=== PATIENT | male | born 1955 | race Caucasian/White ===

== ENCOUNTER 2018-10-22 12:16 | Inpatient (IN) | payer OTHER ==
[~2018-10-22] VITALS: Ht 180.3 cm; Wt 97.7 kg
[2018-10-22] VITALS (11 sets, daily range): BP systolic 74–115; BP diastolic 40–77
--- NOTE | ~2018-10-22 | OP ---
[address] [address] OPERATIVE REPORT Name: SHANA THOMAS Room: [address] IN M.R.#: [id number] Admission: 10/22/18 Attend Phys: Basilio Vasquez DO Discharge: Date of : 59 Report #: [id number] THIS REPORT FOR: //name// CC: Basilio Vasquez [facility] physician/PCP Tina Avila MD DATE OF SERVICE: 10/22/2018 PREOPERATIVE DIAGNOSIS: Perforated viscus with large fluid collection in the left upper quadrant. POSTOPERATIVE DIAGNOSIS: Mass of the left upper quadrant involving the transverse colon, splenic flexure, descending colon, third and fourth portion of the duodenum associated with large hematoma and abscess. PROCEDURE: Emergency exploratory laparotomy with en bloc resection of the transverse colon, splenic flexure, descending colon, duodenum and left upper quadrant mass, small bowel resection with anastomosis and omental patch and transverse colostomy. SURGEON: Basilio Vasquez DO CLOTH PAINTER: Dr. Lyn Shaw. SECOND FIELD CROP FARMER: Student Dr. Wilfredo Wong. ANESTHESIA: General endotracheal. ESTIMATED BLOOD LOSS: 1500 mL COMPLICATIONS: None. REFERRING PHYSICIAN: Dr. Tina Avila. INDICATIONS FOR PROCEDURE: The patient is a 63-year-old gentleman who presented to the Emergency Room with acute onset of left upper quadrant abdominal pain. This pain started at 10:00 a.m. today. He had stated that he was feeling full for the last few weeks and had some episodes of emesis and feeling that food was not going through his stomach. He had previously had a colonoscopy approximately 2 years ago in which he stated there was a polyp that was removed and he was instructed to follow up in 6 months to a year for repeat; however, he had family issues including the passing of his father and he neglected to have that repeat colonoscopy. He was scheduled next Wednesday for that procedure. In the Emergency Room, he underwent a CT scan of his abdomen, which showed a 15 cm mass associated with free intra-abdominal air. [place] [address] OPERATIVE REPORT Name: MARTHASHANA Room: [address] IN ..#: [id number] Admission: 10/22/18 Attend Phys: Basilio Vasquez DO Discharge: Date of : 59 Report #: [id number] quadrant and appeared to have different densities of fluids and solids within it. We discussed emergency laparotomy and he agreed to proceed with that. I did discuss the risks and complications with the patient and his son and son's significant other at the bedside. Risks of the procedure included bleeding, infection, injury to other intra-abdominal organs, possible colostomy, possible ileostomy, possible mucous fistula as well as other associated risks including the possible need for reoperation. I did discuss with the patient that this was a suspicious appearing area and may be cancerous in nature. He agreed to proceed with the procedure. DESCRIPTION OF PROCEDURE: After obtaining proper consents and again discussing the risks and complications with the patient, he was taken to the operating room, laid on the supine position and administered general endotracheal anesthetic. He was then prepped and draped in the usual fashion. We also placed a Chatman catheter. There was very little urine in the patient's bladder when the Chatman was placed and the urine that did come out of the Chatman appeared quite cloudy and quite dark. After the patient was prepped and draped in the usual fashion, a timeout was performed. We confirmed the appropriate patient and procedure. Preoperative antibiotics were given. SCDs were in place. We then made a small supraumbilical skin incision with a #10 scalpel blade. This was carried down through the skin and the subcutaneous tissue using electrocautery for hemostasis. Once the fascia was encountered, it was incised along the midline, grasped and elevated with Gerda clamps and divided further. The peritoneum was then bluntly opened using a hemostat. Immediately upon entering the abdominal cavity, there was a large amount of cloudy fluid noted. We extended the peritoneal and fascial openings for the entire length of the incision. I enlarged the incision enough for me to get my hand inside the abdominal cavity. Once this was done, we immediately identified what appeared to be a large mass in the left upper quadrant. There was also a feculent odor and evidence of food particles. Cultures were obtained from the peritoneal fluid. I then extended the incision all the way up to the xiphoid process. I was then able to place my hand within the abdominal cavity and attempted to identify the structures associated with this. I also ran the small bowel starting from the cecum going backwards until we reached an area of dilated bowel that went directly into this firm mass. There was noted to be a very large hematoma and abscess cavity, which appeared to be inclusive of the jejunum just distal to the ligament of Treitz. This also appeared to include the transverse colon, splenic flexure and descending colon within this firm mass. I then took down the white line of Toldt along the left pericolic gutter. I identified the spleen and cautiously took down the splenic flexure as well. The mesentery of this area was quite firm all the way down to the root of the mesentery. We used a LigaSure impact device and stayed well away from the colon in this area; however, there was a large hole, which appeared to be in both the colon and small bowel in this area and was continuously leaking stool. I then identified the transverse colon in an area that was not involved in this and I opened up the gastrocolic omentum and entered the lesser [place] [address] OPERATIVE REPORT Name: MARTHASHANA Room: [address] IN M.R.#: [id number] Admission: 10/22/18 Attend Phys: Basilio Vasquez DO Discharge: Date of : 59 Report #: [id number] dissect this free blunt dissection as well as dissection with the LigaSure impact device was performed until we were able to roll the entire mass medially and bring it up to the incision. At this point, I felt that we had to perform an en bloc resection of this area, identified the jejunum going into this area and opened an avascular window in the mesentery and then divided the jejunum using a MIRA 80 stapling device. I then also identified a proximal transverse colon area, which appeared to be uninvolved in this mass and opened an avascular window in the mesentery and then used a MIRA 80 to divide this area as well. Then, as I continued to dissect the mesentery of the descending colon all the way up and around the splenic flexure and into the transverse colon, we identified what appeared to be the third portion of the duodenum, which was going into this mass as well. I then divided this proximally assuring that we were well away from the second portion of the duodenum. The mass was removed along with the transverse colon, splenic flexure, descending colon, duodenum and proximal jejunum in multiple pieces. Once this was done, we were able to copiously irrigate and we identified all of the anatomy. We were able to have a portion of the third portion of the duodenum, which was approximately 4 cm long, which I performed an anastomosis to the jejunum using an Endo-MIRA stapler 45 mm purple load. I then closed the enterotomies, which were made in order to perform this anastomosis using interrupted 2-0 Vicryl sutures and then Lembert stitches were placed using 2-0 silk suture over top of this. I also then used an omental patch over top as well, which was sutured in place using 2-0 Vicryl suture. The transverse colon, which had been divided was then brought out through a right upper quadrant colostomy, which was performed by making a circular incision in the skin in the right upper quadrant dissecting down to the fascia. A cruciate incision was made in the fascia and the peritoneum was then opened. The colon was brought up through the abdominal wound. We then copiously irrigated the abdomen again with approximately 3-4 liters of saline solution. I then ran the small bowel again to assure there were no other problems. The sigmoid colon was partially removed along with the mass. We left a very long rectal stump. There was considerable tumor burden, which appeared to be left in place. This was made right on top of the pancreas and the aorta and I was cautious to stay away from these structures. We then placed two 19-Wolof Esvin-Alvarenga drains. One was placed next to the anastomosis of the duodenum to jejunum. The other was placed down into the pelvis and then along the left pericolic gutter all the way up to the spleen. These were sutured in place using 2-0 nylon suture. I then closed the abdomen using #1 looped PDS suture to close the peritoneum and fascia together. The subcutaneous tissues were then closed using 3-0 Vicryl suture. The skin was closed using kimberly. We then matured the colostomy by first attaching it to the fascia using 2-0 Prolene suture. The colostomy was then matured in the standard fashion by removing the staple line and then everting the mucosa and serosa and attaching it to the subcutaneous tissue. A sterile stoma appliance was placed. Sterile dressings were placed. The patient was then awakened in the operating room and transported to the recovery room in stable, but guarded condition with plans for the patient to go to the Intensive Care Unit because of the large amount of [facility] [address] [facility] [place] [address] OPERATIVE REPORT Name: SHANA THOMAS Room: [address] IN M.R.#: [id number] Admission: 10/22/18 Attend Phys: Basilio Vasquez DO Discharge: Date of : 59 Report #: [id number] blood loss and the poor urine output during the operation, although his vital signs did stay stable throughout the operation. Sponge, needle and instrument counts were correct x 3 at the end of the procedure. 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 By: [id number] Vasquez DO /nt
[2018-10-22 13:06] LABS: HEMOGLOBIN 13.1 gm/dL (14.0-18.0); MCH 26.4 pg (26.0-34.0); MCHC 32.8 g/dL (28.0-37.0); MCV 80.6 fL (80.0-100.0); MPV 8.1 fl. (7.2-11.1); NUCLEATED RBCS 0 /100WBC; PLATELET COUNT* 569 thou/uL (150-400); RBC 4.97 mil/uL (4.50-6.00); RDW-CV 13.9 % (10.5-14.5); WBC 18.8 thou/uL (4.0-11.0)
[2018-10-22 13:18] LABS: CALCIUM 8.7 mg/dL (8.5-10.1); CREATININE 1.1 mg/dL (0.6-1.3); POTASSIUM 3.6 mmol/L (3.5-5.1)
[2018-10-22 13:22] LABS: ALBUMIN 2.8 g/dL (3.4-5.0); TOTAL BILIRUBIN 0.6 mg/dL (<0.1-1.0); TOTAL PROTEIN 6.8 g/dL (6.4-8.2)
[2018-10-22 13:32] LABS: ABSOLUTE EOSINOPHILS 0.2 thou/uL (0.0-0.7); ABSOLUTE LYMPHOCYTES 1.5 thou/uL (0.8-5.3); ABSOLUTE MONOCYTES 1.1 thou/uL (0.0-1.2); ATYPICAL LYMPHS 7 %; PLATELET ESTIMATE ADEQUATE
[2018-10-22 14:40] LABS: URINE BLOOD NEGATIVE (Negative); URINE CLARITY CLEAR; URINE COLOR YELLOW; URINE GLUCOSE-RANDOM NEGATIVE (Negative); URINE KETONES 1+ (Negative); URINE LEUKOCYTES-REFLEX NEGATIVE (Negative); URINE NITRITE-REFLEX NEGATIVE (Negative); URINE PROTEIN 1+ (Negative); URINE SPECIFIC GRAVITY >= 1.030 (1.005-1.030); URINE UROBILINOGEN 0.2 E.U./dl (0.2-1.0)
[2018-10-22 14:42] LABS: ICTOTEST (BILI CONFIRMATORY) Negative (Negative); URINE BILIRUBIN 2+ (Negative)
[2018-10-22 20:30] LABS: HEMATOCRIT 33.1 % (42.0-52.0)
[2018-10-22 20:32] LABS: HEMOGLOBIN 10.6 gm/dL (14.0-18.0)
[2018-10-22 20:38] LABS: CALCIUM 7.5 mg/dL (8.5-10.1); CREATININE 1.1 mg/dL (0.6-1.3); POTASSIUM 5.4 mmol/L (3.5-5.1)
[2018-10-22 20:42] LABS: ALBUMIN 1.6 g/dL (3.4-5.0); TOTAL BILIRUBIN 1.5 mg/dL (<0.1-1.0); TOTAL PROTEIN 4.2 g/dL (6.4-8.2)
[2018-10-23] VITALS (60 sets, daily range): BP systolic 80–116; BP diastolic 36–58
[2018-10-23 01:02] LABS: MCH 26.4 pg (26.0-34.0); MCHC 32.4 g/dL (28.0-37.0); MCV 81.5 fL (80.0-100.0); MPV 7.3 fl. (7.2-11.1); RBC 3.19 mil/uL (4.50-6.00); RDW-CV 13.7 % (10.5-14.5); WBC 7.1 thou/uL (4.0-11.0)
[2018-10-23 01:04] LABS: HEMOGLOBIN 8.4 gm/dL (14.0-18.0)
[2018-10-23 02:07] LABS: ALBUMIN 1.3 g/dL (3.4-5.0); CALCIUM 7.1 mg/dL (8.5-10.1); CREATININE 1.3 mg/dL (0.6-1.3); TOTAL BILIRUBIN 1.5 mg/dL (<0.1-1.0); TOTAL PROTEIN 3.2 g/dL (6.4-8.2)
[2018-10-23 04:25] LABS: ABSOLUTE LYMPHOCYTES 0.6 thou/uL (0.8-5.3); ABSOLUTE MONOCYTES 0.5 thou/uL (0.0-1.2); ABSOLUTE NEUTROPHILS 8.5 thou/uL (1.6-8.1); BASOPHILS 0.1 %; HEMATOCRIT 25.9 % (42.0-52.0); HEMOGLOBIN 8.7 gm/dL (14.0-18.0); LYMPHOCYTES 6.1 %; MCH 27.3 pg (26.0-34.0); MCHC 33.8 g/dL (28.0-37.0); MCV 80.9 fL (80.0-100.0); MONOCYTES 5.6 %; MPV 8.2 fl. (7.2-11.1); NUCLEATED RBCS 0 /100WBC; PLATELET COUNT* 255 thou/uL (150-400); POLYS 88.2 %; RDW-CV 13.7 % (10.5-14.5); WBC 9.6 thou/uL (4.0-11.0)
[2018-10-23 04:59] LABS: ALBUMIN 1.3 g/dL (3.4-5.0); CALCIUM 7.4 mg/dL (8.5-10.1); CREATININE 1.4 mg/dL (0.6-1.3); POTASSIUM 5.3 mmol/L (3.5-5.1); TOTAL BILIRUBIN 1.5 mg/dL (<0.1-1.0); TOTAL PROTEIN 3.9 g/dL (6.4-8.2)
--- NOTE | 2018-10-23 05:27 | NUR ---
Pt arrived at 2200 from PACU. ML abdominal drsg C/D/I. LETY drains X2 with SS drng. BP 80s/40s-50s early after arrival, then down to SBP 70s. Paged Dr. Shaw, orders received for 1L bolus LR. SBP to 80s, then 90s. Urinary output at least 30 mls/hr. Pt A&O X4. Reports pain of 3-4/10 when at rest. Turned q2h. NG to LIS with small amount lt green drainage. Denies nausea. Reports sore/dry throat, especially due to NGT. Otherwise no complaints. Will continue to monitor.
--- NOTE | 2018-10-23 12:14 | EKG ---
[place] [address] ELECTROCARDIOGRAM REPORT Name: SHANA THOMAS Room: [address] ADM IN M.R.#: [id number] Admission: 10/22/18 Attend Phys: Basilio Vasquez DO Discharge: Date of : 59 Report #: [id number] THIS REPORT FOR: //name// [facility] ED Test Date: 2018-10-22 Test Time: 21:11:58 Pat Name: SHANA THOMAS Department: Room: [address] Gender: M Cycle Liaison: RADHA : 1955 Requested By: Jac Mann Order Number: [id number] Maricruz MD: Jan Carrera Measurements Intervals [place] Rate: 66 P: 56 WA: 132 QRS: 44 QRSD: 99 T: 18 QT: 408 QTc: 428 Interpretive Statements Sinus rhythm Low voltage, precordial leads Borderline T wave abnormalities No previous ECG available for comparison Electronically Signed On 10-23-2018 12:14:09 [employer] OPERATIONS VICE PRESIDENT by Jan Carrera [email or web address] <ELECTRONICALLY SIGNED> By: Jan Carrera MD, [facility] 10/23/18 1214 10 10 Jan Carrera MD, FACC /EPI
--- NOTE | 2018-10-23 12:19 | EKG ---
[place] [phone] ELECTROCARDIOGRAM REPORT Name: SHANA THOMAS Room: [address] ADM IN M.R.#: [id number] Admission: 10/22/18 Attend Phys: Basilio Vasquez DO Discharge: Date of : 59 Report #: [id number] THIS REPORT FOR: //name// [facility] Test Date: 2018-10-23 Test Time: 07:39:12 Pat Name: SHANA THOMAS Department: Room: [address] Gender: M Ground Defence Officer: JOSE DANIEL : 1955 Requested By: Basilio Vasquez Order Number: [id number] Maricruz MD: Jan Carrera Measurements Intervals [place] Rate: 74 P: 49 RI: 131 QRS: 29 QRSD: 103 T: 5 QT: 386 QTc: 429 Interpretive Statements Sinus rhythm Low voltage, precordial leads Electronically Signed On 10-23-2018 12:19:31 [employer]YWALL STRIPPER HELPER by Jan Carrera [email or web address] <ELECTRONICALLY SIGNED> By: Jan Carrera MD, [facility] 10/23/18 1219 0739 0739 Jan Carrera MD, FACC /EPI
[2018-10-23 13:57] LABS: CALCIUM 7.7 mg/dL (8.5-10.1); CREATININE 1.4 mg/dL (0.6-1.3); POTASSIUM 4.4 mmol/L (3.5-5.1)
--- NOTE | 2018-10-23 18:31 | NUR ---
PATIENT SOMEWHAT PROGRESSING WELL TOWARDS GOALS. PRESSURES REMAIN SOFT THIS SHIFT, ANOTHER 1000ML BOLUS ORDERED. PAIN UNDER CONTROL AT THIS TIME, PRN MORIPHINE. NG TO LIS, NO NAUSEA. SPRAY HELPING FOR SORE THROAT. DRAINS INTACT AND DRAINING. COLOSTOMY INTACT, MINMAL DRAINAGE. 1 UNIT OF BLOOD GIVEN THIS SHIFT. BED IN LOWEST POSITION, CALL LIGHT IN REACH, MARINE DESIGNER IN PLACE.
[2018-10-23 20:36] LABS: HEMATOCRIT 22.6 % (42.0-52.0); HEMOGLOBIN 7.4 gm/dL (14.0-18.0)
[2018-10-24] VITALS (47 sets, daily range): BP systolic 83–115; BP diastolic 40–63
--- NOTE | 2018-10-24 05:32 | NUR ---
SLOWLY PROGRESSING TOWARDS GOALS. RESTING QUIELTY WITH EYES CLOSED MOST OF NOC, EASILY AROUSABLE TO VERBAL STIMULI, MORPHINE 4MG IVP X1 FOR ABD PAIN 7/10 USING NUMERICAL SCALE, ACHING, WORSENING WITH MOVEMENT. MORPHINE HELPFUL FOR PAIN MANAGEMENT, PT VERBALIZED DECREASED PAIN SCORE DECLINED FROM 7 TO 2/10 USING NUMERICAL PAIN SCALE. PT STATES 2/10 PAIN IS TOLERABLE FOR HIM. DENIES NAUSEA, NO EMESIS, REMAINS NPO, FREQUENT ORAL CARE. SYSTOLIC B/P AVERAGE RANGING FROM HIGH 80'S TO LOW 90'S SYSTOLIC AND HIGH 30'S TO LOW HIGH 40'S DIASTOLIC, WITH MAP HIGH 50'S TO LOW 60'S. DENIES NUMBNESS, TINGLING, DIZZYNESS AND REMAINS A/OX4, ADEQUATE URINE OUTPUT 900CC, PAINTING PATENT TO DD. HR REMAINS RANGING FROM 70'S TO 80'S. DRESSING ABD C/D/I, BILAT LETY DRAINS PATENT WITH SEROUSANGUINOUS DRAINAGE. NS CONTINUES 150CC/HR VIA INFUSION PUMP PER ORDER. NO ADVERSE EFFECTS IV ABT'S NOTED. COLOSTOMY <10CC BROWN LIQUID DRAINAING. DR SCANLON RESIDENT HERE THIS AM, EXAMINED PT, AND PLACED ORDERS FOR AM LABS. PT UPDATED POC. DENIES NEEDS AT PRESENT TIME. CALL LIGHT REMAINS IN REACH.
[2018-10-24 07:41] LABS: HEMATOCRIT 20.4 % (42.0-52.0); MCH 26.9 pg (26.0-34.0); MCHC 33.1 g/dL (28.0-37.0); MCV 81.3 fL (80.0-100.0); MPV 7.7 fl. (7.2-11.1); NUCLEATED RBCS 0 /100WBC; PLATELET COUNT* 232 thou/uL (150-400); RDW-CV 14.2 % (10.5-14.5); WBC 11.6 thou/uL (4.0-11.0)
[2018-10-24 07:48] LABS: HEMOGLOBIN 6.7 gm/dL (14.0-18.0)
[2018-10-24 08:09] LABS: ABSOLUTE LYMPHOCYTES 0.2 thou/uL (0.8-5.3); ABSOLUTE NEUTROPHILS 11.4 thou/uL (1.6-8.1); ATYPICAL LYMPHS 1 %; PLATELET ESTIMATE ADEQUATE
[2018-10-24 08:13] LABS: ALBUMIN 1.1 g/dL (3.4-5.0); CALCIUM 7.6 mg/dL (8.5-10.1); CREATININE 1.2 mg/dL (0.6-1.3); POTASSIUM 3.9 mmol/L (3.5-5.1); TOTAL BILIRUBIN 1.3 mg/dL (<0.1-1.0); TOTAL PROTEIN 3.9 g/dL (6.4-8.2)
--- NOTE | 2018-10-24 10:19 | NUR ---
Nutrition: Consult for "NPO postop surgery." Pt is strict NPO currently. NG to LIS. Colostomy placed. Transfusing. GI mass removed. Will follow closely and place nutrition recs when warranted. follow up 10/25/18.
--- NOTE | 2018-10-24 11:48 | NUR ---
PT.SLEEING ON AND OFF. HE LIVES ALONE, WORKS CAMPAIGN CONSULTANT. SONS ARE SUPPORTIVE. HE DOES NOT USE ANY DME. HAS NEVER HAD HH BEFORE BUT WOULD PROBABLY BE INTERESTED FOR REINFORCEMENT OF OSTOMY TEACHING. LUCÍA KAN,OSTOMY NURSE HAS BEEN CONSULTED TO DO INITIAL TEACHING HERE IN HOSPITAL. CM WILL FOLLOW.
[2018-10-24 12:50] LABS: HEMATOCRIT 23.5 % (42.0-52.0)
--- NOTE | 2018-10-24 17:46 | NUR ---
10/24 Days: Hemaglobin 6.7 this am. 1 unit PRBC given, recheck 8.0. B/P remain adequate today with SBP in 90-100's. Was able to work with PT and briefly sat on edge of bed. Patient requires stong encouragment, depressed about situation. NG remians to LIS, strict NPO, possible gastrografin UGI study tomorrow or following day. Good urine output. Minimal drainage from ostomy.
[2018-10-25] VITALS (22 sets, daily range): BP systolic 93–125; BP diastolic 51–76
--- NOTE | 2018-10-25 04:54 | NUR ---
PT. PROGRESSING TOWARDS GOALS. BLOOD PRESSURES REMAIN SOFT BUT STABLE, MAP'S 55-60'S. SINUS RHYTHM ON MONITOR. PT. HAS REFUSED FULL TURNS BUT IS ABLE TO SHIFT WEIGHT WITH ASSISTANCE. LOW AIRLOSS MATTRESS IN PLACE. ALERT AND ORIENTED. NG TO LIS. HAS REMAINED NPO. C/O PAIN X2, MORPHINE GIVEN PER PRN ORDER, PAIN RELIEF OBTAINED. PT. HAS BEEN QUIET/SOMEWHAT WITHDRAWN THROUGHOUT SHIFT. CALL LIGHT IN REACH, WILL CONTINUE TO MONITOR.
[2018-10-25 07:09] LABS: HEMATOCRIT 23.6 % (42.0-52.0); HEMOGLOBIN 7.9 gm/dL (14.0-18.0); MCH 27.4 pg (26.0-34.0); MCHC 33.4 g/dL (28.0-37.0); MCV 82.1 fL (80.0-100.0); MPV 7.8 fl. (7.2-11.1); RBC 2.87 mil/uL (4.50-6.00); RDW-CV 14.2 % (10.5-14.5); WBC 13.7 thou/uL (4.0-11.0)
[2018-10-25 07:22] LABS: ALBUMIN 1.1 g/dL (3.4-5.0); CALCIUM 7.7 mg/dL (8.5-10.1); MAGNESIUM 1.9 mg/dL (1.8-2.4); PHOSPHORUS* 2.4 mg/dL (2.5-4.9); TOTAL BILIRUBIN 1.8 mg/dL (<0.1-1.0); TOTAL PROTEIN 4.1 g/dL (6.4-8.2)
[2018-10-26] VITALS (8 sets, daily range): BP systolic 99–127; BP diastolic 59–74
[2018-10-26 04:48] LABS: HEMATOCRIT 23.8 % (42.0-52.0); HEMOGLOBIN 7.8 gm/dL (14.0-18.0); MCV 81.8 fL (80.0-100.0); MPV 7.9 fl. (7.2-11.1); RBC 2.91 mil/uL (4.50-6.00); RDW-CV 14.7 % (10.5-14.5); WBC 11.4 thou/uL (4.0-11.0)
[2018-10-26 05:50] LABS: ALBUMIN 1.1 g/dL (3.4-5.0); CALCIUM 7.7 mg/dL (8.5-10.1); CREATININE 0.8 mg/dL (0.6-1.3); MAGNESIUM 1.8 mg/dL (1.8-2.4); PHOSPHORUS* 2.5 mg/dL (2.5-4.9); POTASSIUM 3.9 mmol/L (3.5-5.1); TOTAL BILIRUBIN 1.9 mg/dL (<0.1-1.0); TOTAL PROTEIN 4.3 g/dL (6.4-8.2)
--- NOTE | 2018-10-26 06:55 | NUR ---
Pt reports he rested reasonably well overnight. Medicated twice for pain per pt request. Pt had been swabbing mouth frequently during first part of shift; went through about a cup of ice water. Informed pt that swabs should be used sparingly; pt verbalized understanding. Pt eager to get UGI X-ray done today; hopeful of getting cleared to have NG removed due to throat irritation. Good urine output overnight (850 ml). VSS. Will continue to monitor.
--- NOTE | 2018-10-26 16:14 | NUR ---
OSTOMY NURSE - PATIENT NOW 4 DAYS POST-OP FOLLOWING EXPLORATORY LAPAROTOMY, RESECTION OF TRANSVERSE COLON, AND DRAINAGE OF ABSCESS ON 10/22/[address] SCANLON FOR PERFORATED VISCUS WITH LARGE FLUID COLLECTION. PATIENT REMAINS IN ICU, WITH PLANS TO POSSIBLY MOVE OUT TOMORROW. HE IS ALERT, ORIENTED, AND ATTENTIVE. 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 HE LIVES ALONE, BUT SEEMS TO HAVE A GOOD SUPPORT SYSTEM, 3 FRIENDS HERE VISITING AND PRAYING WITH PATIENT. ABDOMEN NON-DISTENDED, SOFT. MIDLINE ABDOMINAL INCISION WELL APPROXIMATED WITH FABIAN, WITH MODERATE AMOUNT OF SEROSANGUINEOUS DRAINAGE ON OLD DRESSING FROM MID INCISION, BUT NO NEW DRAINAGE NOTED. LETY DRAINS RLQ & LLQ DRAINING MODERATE AMOUNTS OF SEROUS DRAINAGE. RUQ TRANSVERSE COLOSTOMY STOMA IS APPROXIMATELY 1 1/4 INCHES, SLIGHTLY BUDDED, BEEFY RED, MOIST AND SLIGHTLY EDEMATOUS. MUCOCUTANEOUS INCISION WELL APPROXIMATED WITH PERISTOMAL SKIN INTACT. DRAINING LARGE AMOUNTS OF LIQUID BROWN STOOL. INSTRUCTED PATIENT ON POUCH EMPTYING AND POUCH CHANGE, BUT WILL NEED ADDITIONAL EDUCATION AND HOME HEALTH AT DISCHARGE. COLOSTOMY SUPPLIES AND TEACHING PACKET AT BEDSIDE. ENROLLED IN [employer] STARTS PROGRAM WITH PATIENTS PERMISSION.
--- NOTE | 2018-10-26 18:48 | NUR ---
REPORT RECEIVED FROM VINCENT GLYNN. ASSESSMENT CHARTED. AFEBRILE TODAY. PT WENT TO XRAY DEPT FOR UPPER GI SERIES. TOLERATED WELL. PT LEFT UNIT AROUND 1000 AND ARRIVED BACK TO RM AROUND 1300. VITALS STABLE. CLEAR LIQUID DIET. TOLERATING DIET WELL. PT WORKED WITH PATIENT TODAY. FAMILY UPDATED ON PLAN OF CARE.
[2018-10-26 20:20] LABS: URINE BLOOD 1+ (Negative); URINE CLARITY CLEAR; URINE COLOR YELLOW; URINE GLUCOSE-RANDOM NEGATIVE (Negative); URINE KETONES NEGATIVE (Negative); URINE LEUKOCYTES-REFLEX NEGATIVE (Negative); URINE NITRITE-REFLEX NEGATIVE (Negative); URINE PROTEIN NEGATIVE (Negative); URINE SPECIFIC GRAVITY >= 1.030 (1.005-1.030); URINE UROBILINOGEN 0.2 E.U./dl (0.2-1.0)
[2018-10-26 20:27] LABS: ICTOTEST (BILI CONFIRMATORY) Positive (Negative); URINE BILIRUBIN 1+ (Negative)
[2018-10-26 20:42] LABS: HYALINE CASTS 0-3 Few /LPF (None Seen)
[2018-10-26 20:43] LABS: AMORPHOUS URATES Moderate /LPF (None Seen); MUCUS None Seen strn/LPF (None Seen); SQUAMOUS NONE SEEN /LPF (0-3)
[2018-10-26 20:44] LABS: URINE RBC 0-2 Rare /HPF (0-2); URINE WBC-REFLEX None Seen /HPF (0-5)
[2018-10-27] VITALS (9 sets, daily range): BP systolic 102–125; BP diastolic 60–75
[2018-10-27 04:05] LABS: HEMOGLOBIN 7.6 gm/dL (14.0-18.0); MCH 27.1 pg (26.0-34.0); MCHC 33.1 g/dL (28.0-37.0); MCV 81.7 fL (80.0-100.0); MPV 7.7 fl. (7.2-11.1); RBC 2.81 mil/uL (4.50-6.00); RDW-CV 14.7 % (10.5-14.5); WBC 10.9 thou/uL (4.0-11.0)
[2018-10-27 04:21] LABS: ALBUMIN 1.2 g/dL (3.4-5.0); CALCIUM 7.5 mg/dL (8.5-10.1); CREATININE 0.8 mg/dL (0.6-1.3); MAGNESIUM 1.7 mg/dL (1.8-2.4); PHOSPHORUS* 2.4 mg/dL (2.5-4.9); POTASSIUM 3.6 mmol/L (3.5-5.1); TOTAL BILIRUBIN 1.4 mg/dL (<0.1-1.0); TOTAL PROTEIN 4.1 g/dL (6.4-8.2)
--- NOTE | 2018-10-27 05:24 | NUR ---
Pt reports feeling a little better. Assisted up to side of bed and then standing position with minimal assist. Pt denies dizziness or light-headedness while up; just weakness. Assisted back to bed and medicated with morphine for pain per pt request. VSS. Pt using IS on his own. Pt also taking in some ice water via swabs frequently d/t dryness in mouth/throat. Pt turned q2h. JPs draining serous fluid. Moderate amount of dk brown stool emptied from colostomy. Chatman draining dk ashely urine. Will continue to monitor.
--- NOTE | 2018-10-27 10:40 | NUR ---
NG TUBE CLAMPED PER DR ORDER.
--- NOTE | 2018-10-27 14:39 | NUR ---
PT CARE ASSUMED AFTER REPORT. ASSESSMENT COMPLETE. SR/SB ON MONITOR. MIDLINE ABD DRESSING C/D/I. COLOSTOMY FUNCTIONG WITH GAS AND STOOL BEING EXPLELLED. NG AND PAINTING CATHETER REMOVED PER ORDERS. PRN MORPHINE FOR PAIN GIVEN X1 PER PT REQUEST. PROGRESSING TOWARDS GOALS. PT TO TRANSFER OUT OF ICU TO ROOM 315.
--- NOTE | 2018-10-27 16:02 | NUR ---
PATIENT CAME TO THE FLOOR FROM THE ICU IN STABLE CONDITION VIA WHEELCHAIR. REPORT RECIEVED FROM ICU NURSE. ROOM ORIETATION DONE, CALL LIGHT IS IN REACH, WILL CONTINUE TO MONITOR.
--- NOTE | 2018-10-27 17:21 | NUR ---
PATIENT HAS BEEN ALERT AND ORIENTED SINCE COMING TO THE FLOOR FROM THE ICU. SOME PAIN THAT IS WELL CONTROLLED WITH IV PAIN MEDICAITONS. CALL LIGHT IS IN REACH WILL CONTINUE TO MONTOR.
[2018-10-28 04:03] LABS: HEMATOCRIT 23.1 % (42.0-52.0); HEMOGLOBIN 7.8 gm/dL (14.0-18.0); MCH 27.5 pg (26.0-34.0); MCHC 33.6 g/dL (28.0-37.0); MCV 81.7 fL (80.0-100.0); MPV 7.9 fl. (7.2-11.1); RBC 2.83 mil/uL (4.50-6.00); WBC 10.7 thou/uL (4.0-11.0)
[2018-10-28 04:19] LABS: ALBUMIN 1.2 g/dL (3.4-5.0); CALCIUM 7.2 mg/dL (8.5-10.1); CREATININE 0.8 mg/dL (0.6-1.3); MAGNESIUM 1.8 mg/dL (1.8-2.4); PHOSPHORUS* 2.7 mg/dL (2.5-4.9); POTASSIUM 3.6 mmol/L (3.5-5.1); TOTAL PROTEIN 4.4 g/dL (6.4-8.2)
[2018-10-28 08:15] VITALS: BP 122/68
[2018-10-28 15:45] VITALS: BP 115/67
--- NOTE | 2018-10-28 18:02 | NUR ---
PATIENT IS ALERT AND ORINETED TODAY VERY PLEASANT. SHOWERED TODAY AND TOELRATED WELL, HAS HAD SOME PAIN THAT THAT IS BEARABLE PER PATIENT. VITAL SIGNS STABLE ON 2 LITERS OF OXYGEN. TRIED TO WEAN OFF TODAY BUT WAS UNABLE TO MAINTAIN SATURATION ABOUT 89% ON ROOM AIR. LETY DRAINS ARE DRAINING AND COLOSTOMY IS DRAINIING. VOIDING WELL. UP WITH STAND BY. CALL LIGHT IS IN REACN WILL CONTINUE TO MONITOR.
[2018-10-29 00:30] VITALS: BP 112/71
[2018-10-29 04:08] LABS: HEMATOCRIT 24.7 % (42.0-52.0); HEMOGLOBIN 8.3 gm/dL (14.0-18.0); MCH 27.6 pg (26.0-34.0); MCHC 33.6 g/dL (28.0-37.0); MPV 8.5 fl. (7.2-11.1); RBC 3.01 mil/uL (4.50-6.00); RDW-CV 15.2 % (10.5-14.5); WBC 10.5 thou/uL (4.0-11.0)
[2018-10-29 04:27] LABS: ALBUMIN 1.2 g/dL (3.4-5.0); CALCIUM 7.5 mg/dL (8.5-10.1); CREATININE 0.8 mg/dL (0.6-1.3); MAGNESIUM 1.7 mg/dL (1.8-2.4); PHOSPHORUS* 2.3 mg/dL (2.5-4.9); POTASSIUM 3.3 mmol/L (3.5-5.1); TOTAL PROTEIN 4.3 g/dL (6.4-8.2)
--- NOTE | 2018-10-29 07:34 | NUR ---
PT STATES HE SLEPT FAIRLY WELL. RECEIVED IV PAIN MED X2 THIS SHIFT WITH GOOD RESULT. ABD DRSSantana CDI. R AND L LETY DRAIN WITH SEROUS DRAINAGE. COLOSTOMY WITH DARK BROWN LIQUID STOOL OUTPUT. RFA IVF INFUSING PER PUMP, ABX GIVEN ORDERED. O2 2L NC. USING URINAL TO VOID TEA COLORED URINE. AM LABS DRAWN. ABLE TO USE CALL LITE AND MAKE NEEDS KNOWN. NO N/V OVERNIGHT AFTER FULL LIQUID DINNER. ENCOURAGED IS USE. CALL LITE IN EASY REACH.
[2018-10-29 08:15] VITALS: BP 114/72
[2018-10-29 15:30] VITALS: BP 140/110
[2018-10-29 15:42] VITALS: BP 139/70
--- NOTE | 2018-10-29 19:29 | NUR ---
PATIENT HAS BEEN A/O X 4 THIS SHIFT. PATIENT IV FLUIDS SL THIS SHIFT. IV ANTIBIOITCS CHANGED TO ORAL. MAG AND POTASSIUM REPLACED. PATIENT UP WITH ASSIST THIS THIS SHIFT, SAT IN CHAIR FOR LUNCH AND PART OF THE AFTERNOON. PATIENT'S COLOSTOMY WITH OUTPUT NOTED. LETY DRAINS X 2 INTACT, DRAINING SEROUS DRAINAGE. MIDLINE INCISION INTACT. RICK HOSE PLACED ORDERED TO HELP WITH SWELLING TO BLE. PATIENT'S FAMILY AT BEDSIDE THROUGOUT THE SHIFT. TOLERATING FULL LIQUIDS, MEDICATED FOR PAIN X 2 THIS SHIFT WITH RELIEF NOTED. HOULRY ROUNDING COMPLETED. CALL LIGHT WITHIN REACH. WILL CONTINUE WITH PLAN OF CARE.
[2018-10-29 20:15] VITALS: BP 110/56
--- NOTE | 2018-10-30 05:40 | NUR ---
PATIENT HAS SLEPT ALL SHIFT WITH NO COMPLAINTS. VITAL SIGNS STABLE ON ROOM AIR. UP AD JACK IN ROOM VOIDING WELL COLOSTOMY HAS LIQUID BROWN STOOL. PATIENT SLEPT IN RICK HOSE TONIGHT TO HELP WITH SWELLING IN LEGS AND FEET. CALL LIGHT IS IN REACH WILL CONTIUE TO MONITOR.
[2018-10-30 08:35] VITALS: BP 123/67
[2018-10-30 16:00] VITALS: BP 114/69
--- NOTE | 2018-10-30 18:59 | NUR ---
PATIENT HAS BEEN A/O X 4 THIS SHIFT. MEDICATED FOR PAIN X1 THIS SHIFT WITH PARTIAL AFFECT. ENCOURAGED TO USE ORAL MEDS, STILL WANTED IV PAIN MEDS. PATIENT IV SALINE LOCKED. PATIENT UP TO CHAIR AND AMBULATING IN ROOM. RICK HOSE IN PLACE TO BILATERAL LEGS. COLOSTOMY PATENT, DRAINING BROWN LIQUID STOOL. LETY DRAINS X 2 INTACT TO RIGHT AND LEFT ABD. PATIENT CONCERNED ABOUT DISCHARGE. DIET ADVANCED TO SOFT/FIBER RESTICTED. FAMILY AT BEDSIDE. HOURLY ROUNDING COMPLETED. CALL LIGHT WITHIN REACH. WILL CONTINUE WITH PLAN OF CARE.
[2018-10-30 20:00] VITALS: BP 114/55
[2018-10-31] VITALS: BP 110/60
[2018-10-31 04:24] LABS: HEMATOCRIT 23.4 % (42.0-52.0); HEMOGLOBIN 7.6 gm/dL (14.0-18.0); MCH 26.7 pg (26.0-34.0); MCHC 32.7 g/dL (28.0-37.0); MCV 81.8 fL (80.0-100.0); NUCLEATED RBCS 0 /100WBC; PLATELET COUNT* 284 thou/uL (150-400); RBC 2.86 mil/uL (4.50-6.00); RDW-CV 15.5 % (10.5-14.5); WBC 13.3 thou/uL (4.0-11.0)
[2018-10-31 04:30] VITALS: BP 114/72
[2018-10-31 04:59] LABS: CALCIUM 7.5 mg/dL (8.5-10.1); CREATININE 0.8 mg/dL (0.6-1.3); MAGNESIUM 1.8 mg/dL (1.8-2.4); PHOSPHORUS* 2.8 mg/dL (2.5-4.9); POTASSIUM 3.5 mmol/L (3.5-5.1)
[2018-10-31 05:36] LABS: ABSOLUTE EOSINOPHILS 0.1 thou/uL (0.0-0.7); ABSOLUTE LYMPHOCYTES 1.6 thou/uL (0.8-5.3); ABSOLUTE MONOCYTES 0.4 thou/uL (0.0-1.2); ABSOLUTE NEUTROPHILS 11.2 thou/uL (1.6-8.1); PLATELET ESTIMATE ADEQUATE
[2018-10-31 05:37] LABS: ANISOCYTOSIS 1+; POIKILOCYTOSIS 1+
--- NOTE | 2018-10-31 06:35 | NUR ---
ASSUMED CARE OF PT AT 1900 PT ALERT AND ORIENTED X4 VS AND ASSESSMENT STABLE EXCEPT FOR TEMP OF 100.[address] CHARISSA BALL OBTAINED OREDER FOR X1 TYLENOL ALSO GAVE PRN MORPHINE AND ENCOURAGED USE OF IS AND DEEP BREATHING AND COUGHING. PTS TEMP RESOLVED AND PT STATED HE FELT BETTER. AT [place] PT GOT OOB AND HIS L SIDED LETY DRHANNAH CAME OUT COMPLETELY NO BLEEDING OR DRAINAGE NOTED COVERED WITH DSD. PT THEN SLEPT THROUGH THE NIGHT. WILL CONTINUE PLAN OF CARE.
[2018-10-31 08:05] VITALS: BP 113/66
[2018-10-31 10:17] LABS: URINE BILIRUBIN NEGATIVE (Negative); URINE BLOOD NEGATIVE (Negative); URINE CLARITY CLEAR; URINE COLOR YELLOW; URINE GLUCOSE-RANDOM NEGATIVE (Negative); URINE KETONES NEGATIVE (Negative); URINE LEUKOCYTES-REFLEX NEGATIVE (Negative); URINE NITRITE-REFLEX NEGATIVE (Negative); URINE PROTEIN NEGATIVE (Negative); URINE SPECIFIC GRAVITY 1.015 (1.005-1.030); URINE UROBILINOGEN 0.2 E.U./dl (0.2-1.0)
[2018-10-31 16:00] VITALS: BP 120/75
--- NOTE | 2018-10-31 16:32 | NUR ---
SW met with pt to follow up on dc planning; Dr Vasquez's note indicates that pt is not quite ready for dc. SW provided list of HH options and pt plans to review but is hopeful to have HH services follow up after pt dc home. SW to continue to follow to assist with safe dc planning.
--- NOTE | 2018-10-31 17:37 | NUR ---
PATIENT HAS BEEN A/O X 4 THIS SHIFT. MEDICATED FOR PAIN X 2 THIS SHIFT, ENCOURAGING USE OF ORAL PAIN MEDS. IV SALINE LOCKED. COLOSTOMY PATENT WITH LIQUID STOOL NOTED. MIDLINE INCISION INTACT, RIGHT LOWER ABDOMINAL LETY DRAIN INTACT WITH SEROUS DRAINAGE. PATIENT AMBULATED HALLS WITH NURSING STAFF THIS SHIFT. CXR, UA AND BLOOD CULTURES OBTAINED THIS SHIFT. AFEBRILE THIS SHIFT, UTILIZING I.S. RICK HOSE IN PLACE TO BILATERAL LOWER LEGS, REMOVED FOR SKIN CARE AND ASSESSMENT. PATIENT HAS HAD SEVERAL VISITORS IN THIS SHIFT TO VISIT. HOURLY ROUNDING COMPLETED. CALL LIGHT WITHIN REACH. WILL CONTINUE WITH PLAN OF CARE.
[2018-10-31 19:30] VITALS: BP 115/69
[2018-11-01] VITALS (7 sets, daily range): BP systolic 95–108; BP diastolic 47–69
[2018-11-01 04:38] LABS: ABSOLUTE EOSINOPHILS 0.1 thou/uL (0.0-0.7); ABSOLUTE LYMPHOCYTES 0.9 thou/uL (0.8-5.3); ABSOLUTE NEUTROPHILS 11.7 thou/uL (1.6-8.1); BASOPHILS 0.3 %; HEMATOCRIT 23.8 % (42.0-52.0); HEMOGLOBIN 7.9 gm/dL (14.0-18.0); LYMPHOCYTES 6.9 %; MCH 26.9 pg (26.0-34.0); MCHC 33.1 g/dL (28.0-37.0); MCV 81.1 fL (80.0-100.0); MPV 8.1 fl. (7.2-11.1); NUCLEATED RBCS 0 /100WBC; PLATELET COUNT* 343 thou/uL (150-400); POLYS 84.8 %; RBC 2.94 mil/uL (4.50-6.00); WBC 13.8 thou/uL (4.0-11.0)
[2018-11-01 04:48] LABS: CALCIUM 7.8 mg/dL (8.5-10.1); CREATININE 0.9 mg/dL (0.6-1.3); POTASSIUM 3.9 mmol/L (3.5-5.1)
--- NOTE | 2018-11-01 16:28 | NUR ---
PATIENT IS ALERT AND ORIENTED TODAY VERY PLEASANT. UP WITH STAND BY ASSIST. COLOSTOMY IS DRAINING LIQUID BROWN STOOL. VITAL SIGNS STABLE ON ROOM AIR. SOME PAIN TODAY, PATIENT TAKES PAIN MEDICATION BEFORE MEALS SINCE FOOD CAUSES PAIN. PATIENT HAS SOME CONCERNS WITH LOWER LEG SWELLING. EXPLAINED THAT I WOULD PASS ON IN REPORT AND TO MAKE SURE PATIENT NOTIFIES SURGEON IN THE MORNING DURING ROUNDING. CALL LIGHT IS IN REACH, WILL CONTINUE TO MONITOR.
[2018-11-02 04:10] LABS: HEMATOCRIT 22.7 % (42.0-52.0); HEMOGLOBIN 7.4 gm/dL (14.0-18.0); MCH 26.4 pg (26.0-34.0); MCHC 32.4 g/dL (28.0-37.0); MCV 81.3 fL (80.0-100.0); RBC 2.8 mil/uL (4.50-6.00); RDW-CV 15.7 % (10.5-14.5); WBC 13.1 thou/uL (4.0-11.0)
[2018-11-02 04:25] LABS: ALBUMIN 1.2 g/dL (3.4-5.0); CALCIUM 7.8 mg/dL (8.5-10.1); CREATININE 0.9 mg/dL (0.6-1.3); MAGNESIUM 1.6 mg/dL (1.8-2.4); PHOSPHORUS* 3.3 mg/dL (2.5-4.9); TOTAL BILIRUBIN 0.6 mg/dL (<0.1-1.0); TOTAL PROTEIN 4.8 g/dL (6.4-8.2)
--- NOTE | 2018-11-02 05:28 | NUR ---
PT SLEPT MOST OF SHIFT. ASSESSMENT DOCUMENTED. MEDS GIVEN PER E-MAR. IV PATENT. PAIN MEDS GIVEN PER E-MAR WITH RELIEF. DRESSINGS REPLACED THIS SHIFT. LETY DRAIN IN PLACE, INCISION INTACT. WILL CONTINUE WITH PLAN OF CARE.
--- NOTE | 2018-11-02 08:43 | NUR ---
WAS ASKED TO ASSIST WITH SETTING UP HOME CARE FOR PT. UNABLE TO UTILIZE [facility] WEBSITE TO FIND HH, CALLS TO HH COMPANIES IN HIS HOME AREA, ONLY ONE THAT IS IN NETWORK WITH [facility] IS [facility]. SPOKE WITH KATINA, FAXED HER INITIAL REFERRAL. SHE STATED THAT THEY COULD START CARE FOR PT ON MONDAY 11/06 AND THAT ORDERS WOULD NEED TO REFLECT THAT. WILL NEED ORDERS CALLED AND FAXED AT [facility] [phone] FAX [phone]
[2018-11-02 08:56] VITALS: BP 113/76
--- NOTE | 2018-11-02 12:27 | NUR ---
OSTOMY NURSE- PATIENT PREPARING FOR DISCHARGE TOMORROW, UP & AROUND IN ROOM WITH STEADY GAIT. ABDOMEN ROUNDED, SOFT. MIDLINE ABDOMINAL INCISION WITH STERISTRIPS ON UPPER ASPECT, AND SMALL DEHISENCE LOWER ASPECT, APPROXIMATELY 1-1.5 CM LONG, 1 CM WIDE & 1 CM DEEP. DRAINING MODERATE AMOUNTS OF SEROSANGUINEOUS DRAINAGE, NO ODOR. NO ERYTHEMA. COLOSTOMY STOMA BEEFY RED, MOIST, STILL SLIGHTLY EDEMATOUS WITH MUCOCUTANEOUS INCISION WELL APPROXIMATED. PERISTOMAL SKIN INTACT. DRAINING MODERATE AMOUNTS OF SOFT BROWN STOOL. INSTRUCTED PATIENT ON POUCH EMPTYING AND POUCH CHANGE. HE PARTICIPATED IN BOTH, AND FEELS COMFORTABLE. WILL NEED HOME HEALTH FOLLOW-UP FOR ADDITIONAL TEACHING, AND TO MONITOR INCISION. HE HAS INITIAL SUPPLIES, COLOSTOMY TEACHING PACKET AND HAS PREVIOUSLY BEEN ENROLLED IN [employer] PROGRAM.
[2018-11-02 14:54] VITALS: BP 99/57
[2018-11-02 15:21] VITALS: BP 97/59
--- NOTE | 2018-11-02 16:06 | PATH ---
[address] [address] PATHOLOGY RPT PROCEDURE Name: SARTHAK THOMAS Room: [address] IN M.R.#: [id number] Admission: 10/22/18 Date of : 59 Discharge: Report #: [id number] Path Case #: [id number] [facility] Accession Number: [id number] . 01 Material submitted: . TRANSVERSE AND DESCENDING COLON, SPLENIC FLEXURE, AND 3RD AND 4TH DUODENUM . 01 Clinical history: . Mass of left upper quadrant involving transverse colon, splenic flexure, descending colon, 3rd/4th portion duodenum, perforation, abscess. . 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 - One small benign appearing lymph node. See comment. LBQ/11/01/2018 . 02 Comment: Sections of the neoplasm show a monotonous population of medium sized atypical/irregular lymphocytes with abundant mitoses and apoptosis and patchy areas of a "starry madison" pattern as well as necrosis. The tumor is predominantly arising within the segment of small intestine, also involving the mucosa, and invades into the attached segment of the external aspect of the colon, including the muscularis propria. A panel of properly controlled immunohistochemical stains is performed on A6 with results as follows, supporting the diagnosis and classification: MUM-1 negative, CD20 negative, PAX5 negative, CD3 positive, CD5 negative, CD10 negative, BCL2 positive, BCL6 negative, cyclin D1 negative, keratin SATURNINO negative, CD30 negative, Ki-67 strong diffuse positive (at least 90%), CD56 positive, CD8 positive, CD43 positive, CD4 tumor negative with scattered probable histiocytes positive, CD79a partially negative with some patchy positive interpreted as non-specific staining. . It is noted that sections of the small intestine do not show features of celiac disease, also supporting type II enteropathy-associated T-cell lymphoma. . Reviewed with Dr. Devi Solo and Dr. Mikki Butler (hematopathologists) who agree with the diagnosis and classifications. Preliminary findings discussed with Dr. Vasquez at approximately 1600 on 10/26/[address] Sushma King at approximately 11:15 a.m. on 10/28/2018. (ANDREW/db/pit; 10/31/2018) . 02 Electronically signed: [place] [address] PATHOLOGY RPT PROCEDURE Name: SARTHAK THOMAS Room: [address] M.R.#: [id number] Admission: 10/22/18 Date of : 59 Discharge: Report #: [id number] Path Case #: [id number] Watson Francis MD, Pathologist NPI- [id number] . 01 Gross description: . The specimen is received in formalin, labeled "JaclynSarthak, en bloc resection, transverse colon, splenic flexure, descending colon, third and fourth portion of duodenum", are two separate segments of bowel. A segment of small bowel and a segment of colon. The small bowel segment has a perforation with attached indurated possible mesentery and blood clot. Both the margins of this segment are closed by staple lines. The small bowel segment measures 27 cm in length with a proximal margin circumference measuring 7.5 cm (inked green) and distal margin measuring 8.0 cm (inked yellow) and attached, indurated possible mesentery approximately measuring up to 9.5 cm. The perforation approximately measures 5.5 x 5.0 cm and is 16 cm from proximal and 9.5 cm from the distal margin. Contiguous with this perforation there is a rodriguez-pink, rubbery, firm mass measuring 9.7 x 9.5 x 5.2 cm. The mass involves the possible mesentery margin and is 0.4 cm from the distal margin and 6.0 cm from the proximal margin. The uninvolved mucosa is rodriguez-brown. A rodriguez, firm possible lymph node is identified measuring 0.3 cm in greatest dimension. Consumer Lending [employer] sections of this segment are submitted in A1-A15. . The colon segment measures 30 cm in length with abundantly attached indurated, hemorrhagic, necrotic possible mesentery measuring up to 5.5 cm in width. Both the margins are closed by staple lines. There is a longitudinal disruption of the colon wall approximately measuring 10.5 cm in length (inked orange). This disruption is on the anti-mesenteric aspect, a longitudinal transmural cut exposing the inside mucosa. The edges of this disruption are sharp and appears viable. The disruption is 5.7 cm from the closest margin that has an internal circumference measuring 4.0 cm (inked green) and is 16 cm from the opposite margin that has a circumference of 4.8 cm (inked yellow). Consumer Lending Manager sections from this segment are submitted in A16-A27. . Also received separately is yellow lobulated mesentery measuring 14 x 7.5 x 1.0 cm. No discrete nodules or masses are identified. Consumer Lending Manager section is submitted in A28. . Sections submitted as follows: A1-A2. Proximal small bowel margin, en face (inked green) A3-A4. Distal small bowel margin, en face (inked yellow) A5. Possible mesentery margin A6. Mass to closest small bowel distal margin, perpendicular section A7-A8. Small bowel to perforation including mass (inked black) A9. Small bowel mucosa to mass A10-A11. Mass to perforation A12-13. Small bowel to perforation including mass (inked blue) [place] [address] PATHOLOGY RPT PROCEDURE Name: SARTHAK THOMAS Room: [address] IN [facility]#: [id number] Admission: 10/22/18 Date of : 59 Discharge: Report #: [id number] Path Case #: [id number] A14. Small bowel mucosa to mass A15. Possible lymph node candidate, bisected A16. Colon, margin closest to disruption (inked green), en face A17. Colon, margin away from disruption (inked yellow), en face A18. Colon, mesenteric margin A19. Colon, uninvolved mucosa closest to disruption A20-A21. Colon, disruption to underlying mass A22. Colon, antimesentric disruption A23-A25. Colon mucosa to underlying mass (A24 = possibly invading the wall) A26-827. Colon, mass A28. Separately received mesentery fragment ([facility]; 10/25/2018) . After intial microscopic review, additional sections are submitted as follows: A29. Small bowel, uninvolved A30. Colon, uninvolved ([facility]; 10/31/2018) SHS/SHS . 02 Pathologist provided ICD-10: C86.2, K63.1, K65.8 . 02 CPT . 225667, N77513, C94556, 073412 Specimen Comment: A courtesy copy of this report has been sent to Specimen Comment: [phone], . Specimen Comment: Report sent to / DR MORALEZ Performed at: [address], [place], [place] [id number] MD Johnny Moreno MD Phone: [phone] Performed at: 02 [facility] [address], [place], [place] [id number] MD Watson Francis MD Phone: [phone]
--- NOTE | 2018-11-02 17:43 | NUR ---
PATIENT RESTED MOST OF THE DAY. ABDOMEN FABIAN REMOVED EXCEPT FOR THE BOTTOM TWO, SMALL DEHISCENCE AT THE VERY BOTTOM. TEACHING ON COLOSTOMY CARE, PATIENT PERFORMED OWN COLOSTOMY CARE UNDER SUPERVISION. HOPES TO DISCHARGE TOMORROW. PATIENT RESTING IN BED, CALL LIGHT WITHIN REACH, BED RAILS UP X2, STATES NO NEEDS AT THIS TIME, WILL CONTINUE TO MONITOR.
--- NOTE | 2018-11-02 19:24 | NUR ---
REVIEWED AND AGREE WITH CHARTING BY SANDRA MARIN.
[2018-11-03 04:30] VITALS: BP 116/67
--- NOTE | 2018-11-03 05:30 | NUR ---
PATIENT SLEPT WELL DURING THIS SHIFT. PT UP AD JACK IN ROOM. PT WITH MIDLINE INCISION WITH FABIAN AT THE BOTTOM; SCANT DRAINAGE NOTED ON GAUZE. PT HAS COLOSTOMY; DOES SELF CARE. PT WITH SEROUS DRAINAGE FROM LETY DRAIN. PT DENIE PAIN ON THIS SHIFT. FREQUENBTLY USED ITEMS AND CALL LIGHT WITH REACH. SIDERAILS UPX2. WILL CONTINUE TO MONITOR.
[2018-11-03 06:41] LABS: CALCIUM 8.1 mg/dL (8.5-10.1); CREATININE 0.8 mg/dL (0.6-1.3); MAGNESIUM 1.9 mg/dL (1.8-2.4); PHOSPHORUS* 3.3 mg/dL (2.5-4.9); POTASSIUM 3.9 mmol/L (3.5-5.1)
[2018-11-03 07:55] VITALS: BP 114/65
[2018-11-03 09:47] LABS: HEMOGLOBIN 7.6 gm/dL (14.0-18.0); MCH 26.4 pg (26.0-34.0); MPV 7.7 fl. (7.2-11.1); RBC 2.88 mil/uL (4.50-6.00); RDW-CV 15.7 % (10.5-14.5); WBC 12.9 thou/uL (4.0-11.0)
[2018-11-03] MEDS ORDERED: NORCO 7.5-3251 EACH PO (10:11)
[2018-11-03] MEDS ORDERED: KEFLEX500 M1 PO (10:12)
[2018-11-03 10:14] VITALS: BP 114/65
[2018-11-03 11:38] VITALS: BP 114/65
--- NOTE | 2018-11-03 11:48 | NUR ---
Pt to dc home today; pt has transportation home. ANDRE met with pt to discuss dc plan for pt and HH services to begin through [facility] on Monday 11/06. ANDRE faxed final orders and med list to [facility]. Dr Vasquez to follow HH orders. ANDRE provided information on finding a primary care physician. No other needs expressed.
--- NOTE | 2018-11-03 12:10 | NUR ---
PATIENT DISCHARGED TO HOME WITH HOME HEALTH. DISCHARGE PAPERS REVIEWED AND SIGNED. PRESCRIPTIONS AND INFORMATION SHEETS GIVEN. IV REMOVED. COLOSTOMY, LETY AND WOUND CARE INSTRUCTION PROVIDED. SUPPLIES GIVEN. PATIENT DENIES ANY FURTHER NEEDS. PATIENT TAKEN BY WHEELCAHIR TO EXIT. LEFT WITH FRIEND.
== END 2018-11-03 12:10 | disposition home health service (06) | DRG 326 ==
LOC: M.ERS 12:16 → M.SUR 12:16 → M.ICU 19:40 → M.3W 10-27 15:47
PROVIDERS: Family Medicine; Surgery; ADMIT Surgery
PROC: 0DBN0ZZ Excision of Sigmoid Colon, Open Approach (ICD-10-PCS; principal; 2018-10-22)
PROC: 0DB90ZZ Excision of Duodenum, Open Approach (ICD-10-PCS; principal; 2018-10-22)
PROC: 0DBM0ZZ Excision of Descending Colon, Open Approach (ICD-10-PCS; principal; 2018-10-22)
PROC: 0DU Gastrointestinal System, Supplement (ICD-10-PCS; principal; 2018-10-22)
PROC: 0D1L0Z4 Bypass Transverse Colon to Cutaneous, Open Approach (ICD-10-PCS; principal; 2018-10-22)
PROC: 0DBL0ZZ Excision of Transverse Colon, Open Approach (ICD-10-PCS; principal; 2018-10-22)
PROC: 30233N1 Transfusion of Nonautologous Red Blood Cells into Peripheral Vein, Percutaneous Approach (ICD-10-PCS; 2018-10-23)
PROC: 0D9670Z Drainage of Stomach with Drainage Device, Via Natural or Artificial Opening (ICD-10-PCS; 2018-10-23)
DX: K63.0 Abscess of intestine (principal); K63.1 Perforation of intestine (nontraumatic); C85.90 Non-Hodgkin lymphoma, unspecified, unspecified site; R19.02 Left upper quadrant abdominal swelling, mass and lump; E87.5 Hyperkalemia; E83.42 Hypomagnesemia; E83.39 Other disorders of phosphorus metabolism; Z28.21 Immunization not carried out because of patient refusal; Z79.899 Other long term (current) drug therapy

== ENCOUNTER → 2018-11-21 | Outpatient (CLI) | payer OTHER ==
[~2018-11-21] MED LIST: ENOXAPARIN100 MG/11 SUBQ; KEFLEX500 M1 PO; NORCO 5-325 TA1 EACH PO; NORCO 7.5-3251 EACH PO; ONDANSETRON HCL4 M2 PO; SENNA PLUS TAB1 EACH PO; XARELTO15 MG PO
--- NOTE | 2018-11-21 13:41 | 2DMMODE ---
[place] [address] 2 D/M-MODE ECHOCARDIOGRAM Name: SHANA THOMAS Room: [facility]#: [id number] Admission: 11/21/18 Attend Phys: Sushma King MD Discharge: Date of : 59 Date of Service: 11/21/18 1341 Report #: [id number] THIS REPORT FOR: //name// APPROVED REPORT Study performed: 11/21/2018 10:40:31 EXAM: Comprehensive 2D, Doppler, and color-flow Echocardiogram Patient Location: Out-Patient Status: routine BSA: 2.09 HR: 63 bpm BP: 115/72 mmHg Other Information Study Quality: Adequate Indications Pre-Chemo 2D Dimensions IVSd: 11.94 (7-11mm) LVOT Diam: 21.17 (18-24mm) LVDd: 52.94 mm PWd: 11.42 (7-11mm) Ascending Ao: 28.27 (22-36mm) LVDs: 29.28 (25-40mm) Aortic Root: 29.27 mm Volumes Left Atrial Volume (Systole) LA ESV Index: 21.40 mL/m2 Aortic Valve AoV Peak Riley.: 0.99 m/s AO Peak Gr.: 3.92 mmHg LVOT Max P.18 mmHg AO Mean Gr.: 1.83 mmHg LVOT Mean P.45 mmHg LVOT Max V: 0.89 m/s AO V2 VTI: 18.63 cm LVOT Mean V: 0.55 m/s NICHO (VTI): 3.15 cm2 LVOT V1 VTI: 16.68 cm Mitral Valve E/A Ratio: 0.93 MV Decel. Time: 221.70 ms MV E Max Riley.: 0.49 m/s MV PHT: 64.29 [place] [address] 2 D/M-MODE ECHOCARDIOGRAM Name: SHANA THOMAS Room: [facility]#: [id number] Admission: 11/21/18 Attend Phys: Sushma King MD Discharge: Date of : 59 Date of Service: 11/21/18 1341 Report #: [id number] MVA (PHT): 3.42 cm2 TDI E/Lateral E': 3.50 E/Medial E': 4.45 Medial E' Riley.: 0.11 m/s Lateral E' Riley.: 0.14 m/s Pulmonary Valve PV Peak Riley.: 1.01 m/s PV Peak Gr.: 4.04 mmHg Tricuspid Valve RAP Estimate: 5.00 mmHg TR Peak Gr.: 32.16 mmHg RVSP: 37.16 mmHg PA Pressure: 37.16 mmHg Left Ventricle The left ventricle is normal size. There is normal LV segmental wall motion. There is normal left ventricular wall thickness. Left ventricular systolic function is normal. The left ventricular ejection fraction is within the normal range. LVEF is 50-55%. The left ventricular diastolic function is normal. Right Ventricle The right ventricle is normal size. The right ventricular systolic function is normal. Atria The left atrium size is normal. The right atrium size is normal. Aortic Valve The aortic valve is normal in structure. Mild aortic regurgitation. There is no aortic valvular stenosis. Mitral Valve The mitral valve is normal in structure. Mild mitral regurgitation. No evidence of mitral valve stenosis. Tricuspid Valve The tricuspid valve is normal in structure. Mild tricuspid regurgitation. Pulmonic Valve The pulmonary valve is normal in structure. Mild [place] [address] 2 D/M-MODE ECHOCARDIOGRAM Name: SHANA THOMAS Room: [facility]#: [id number] Admission: 11/21/18 Attend Phys: Sushma King MD Discharge: Date of : 59 Date of Service: 11/21/18 1341 Report #: [id number] Great Vessels The aortic root is normal in size. IVC is normal in size and collapses >50% with inspiration. Pericardium There is no pericardial effusion. <Conclusion> Left ventricular systolic function is normal. The left ventricular ejection fraction is within the normal range. <ELECTRONICALLY SIGNED> By: Jan Carrera MD, FAC 11/21/18 134 40 40 Jan Carrera MD, FAC /INF
== END ==
LOC: M.CRD 09:32
DX: I08.8 Other rheumatic multiple valve diseases (principal); C91.50 Adult T-cell lymphoma/leukemia (HTLV-1-associated) not having achieved remission

== ENCOUNTER → 2018-11-22 | Day surgery (SDC) | payer OTHER ==
[~2018-11-22] MED LIST changes: -ENOXAPARIN100 MG/11 SUBQ; -ONDANSETRON HCL4 M2 PO; -SENNA PLUS TAB1 EACH PO; -XARELTO15 MG PO
--- NOTE | ~2018-11-22 | OP ---
[address] [address] OPERATIVE REPORT Name: MARTHASHANA Rodas Room: [facility]#: [id number] Admission: 11/22/18 Attend Phys: Basilio Vasquez DO Discharge: Date of : 59 Report #: [id number] THIS REPORT FOR: //name// CC: Basilio Yi MD REFERRING PHYSICIAN: Lionel Yi MD PREOPERATIVE DIAGNOSIS: T-cell lymphoma, need for vascular access. POSTOPERATIVE DIAGNOSIS: T-cell lymphoma, need for vascular access. PROCEDURE: Insertion of single lumen Port-A-Cath. SURGEON: Basilio Vasquez DO SPEAKING UNIT ASSEMBLER: Masoud Leon DO ANESTHESIA: General with an LMA. ESTIMATED BLOOD LOSS: Less than 20 mL. COMPLICATIONS: None. DESCRIPTION OF PROCEDURE: After obtaining proper consents and discussing risks and complications with the patient, he was taken to the operating room, laid on the supine position, administered general anesthesia. He was then prepped and draped in the usual fashion. A timeout was performed. We confirmed the appropriate patient and procedure. Preoperative antibiotics were given. SCDs were in place. I then used a large needle to cannulate the subclavian vein using the Seldinger technique without difficulty under fluoroscopy. Once the needle was inserted and a good blood return was identified, we then passed a guidewire under fluoroscopy and this was seen coursing directly into the superior vena cava. I then made a small skin incision along the left deltopectoral groove. This was carried down through the skin into the subcutaneous tissue until the pectoralis fascia was identified. A port pocket was then formed. I then inserted a dilator and sheath over top of the guidewire also under fluoroscopic guidance and this was also seen coursing directly into the superior vena cava. I then removed the dilator and guidewire. I then inserted the catheter through the tear-away sheath. The tear-away sheath was then removed. The catheter was cut to size and attached to the port. The port was then placed into the port pocket and sutured in place using 2-0 Vicryl suture. We then aspirated and flushed the port without difficulty. The port was then packed with 3 mL of 1000 units per mL heparin. The subcutaneous tissues were then closed using 3-0 Vicryl suture and the skin was closed using 4-0 Monocryl subcuticular stitch. Mastisol, Steri-Strips, [place] [address] OPERATIVE REPORT Name: SHANA THOMAS Room: [facility]#: [id number] Admission: 11/22/18 Attend Phys: Basilio Vasquez, DO Discharge: Date of : 59 Report #: [id number] pressure dressing were placed. The patient tolerated the procedure well, was transported to recovery room in stable condition. Postoperative chest x-ray will be obtained. By: [id number] Vasquez DO /paul
[2018-11-22 08:54] LABS: HEMATOCRIT 33.1 % (42.0-52.0); HEMOGLOBIN 10.5 gm/dL (14.0-18.0)
== END | disposition home or self-care (01) ==
LOC: M.SUR
PROVIDERS: Surgery
DX: Z45.2 Encounter for adjustment and management of vascular access device (principal); C84.48 Peripheral T-cell lymphoma, not elsewhere classified, lymph nodes of multiple sites

== ENCOUNTER → 2019-02-01 | Outpatient (CLI) | payer OTHER ==
[~2019-02-01] MED LIST changes: +ENOXAPARIN100 MG/11 SUBQ; +ONDANSETRON HCL4 M2 PO; +SENNA PLUS TAB1 EACH PO; +XARELTO15 MG PO
[2019-02-01 11:13] VITALS: BP 100/62; BP 102/65; BP 105/69; BP 113/74
--- NOTE | 2019-02-01 13:50 | NUR ---
ARRIVED AMBULATORY. MADE SELF COMFORTABLE IN RECLINER. PORT A CATH ALREADY ACCESSED PT HAS BEEN DOING LABS AND THERAPY AT [facility]. PORT PATENT WITH GOOD BRISK BLOOD RETURN AND EASY FLUSH. PREMEDS PER ORDER. TRANSFUSION COMPLETED AND TOELRATED WELL. PORT A CATH FLUSHED AND LEFT ACCESSED PT IS TO BE SEEN AT [facility] THIS WEDNESDAY. DISCHARGE REVIEWED AND PT DENIES QUESTIONS OR NEEDS AT [facility].
== END ==
LOC: M.INFUS 04:39
DX: C91.50 Adult T-cell lymphoma/leukemia (HTLV-1-associated) not having achieved remission (principal)

== ENCOUNTER → 2019-03-10 | Outpatient (CLI) | payer OTHER ==
[2019-03-10 08:45] VITALS: BP 102/61; BP 107/55; BP 108/63
[2019-03-10 10:47] VITALS: BP 108/63; BP 110/65; BP 111/73; BP 92/49
== END ==
LOC: M.INFUS 07:47
DX: C91.50 Adult T-cell lymphoma/leukemia (HTLV-1-associated) not having achieved remission (principal); N18.9 Chronic kidney disease, unspecified; D63.1 Anemia in chronic kidney disease